=== PATIENT | male | born 1940 | race Caucasian/White ===

== ENCOUNTER → 2019-10-16 | Outpatient (CLI) | payer MEDICARE ==
[~2019-10-16] MED LIST: ASPI-496 PO; BENA10TA59 PO; CHOL2000 PO; DIGO250T6 PO; FURO40TA6 PO; GLYB5TAB3 PO; HYDR-3237 PO; INSU100C SQ-INSULIN; INSU100I13 SC; METF10002 PO; METF500T PO; METO25TA91 PO; OMEP20TA62 PO; PRAV80TA2 PO; WARF-36 PO; WARF5TAB PO
== END | disposition home or self-care (01) ==
LOC: CFH 10:53
PROVIDERS: ATTEND Internal Medicine Nephrology
DX: R39.198 Other difficulties with micturition (principal); E11.22 Type 2 diabetes mellitus with diabetic chronic kidney disease; I12.9 Hypertensive chronic kidney disease with stage 1 through stage 4 chronic kidney disease, or unspecified chronic kidney disease; N18.3 Chronic kidney disease, stage 3 (moderate); E78.5 Hyperlipidemia, unspecified; Z68.34 Body mass index [BMI] 34.0-34.9, adult
CPT/HCPCS: 76770